=== PATIENT | female | born 1975 | race Caucasian/White ===

== ENCOUNTER 2016-09-19 13:26 | Emergency (ER) | payer BC ==
[2016-09-19] MEDS ORDERED: Lidocaine 1% 20 ML MDV INJECT ONE (13:51)
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
[2016-09-19 14:16] VITALS: BP 130/78
== END 2016-09-19 14:13 | disposition home or self-care (01) ==
LOC: MW.ED 13:26
DX: S41.112A Laceration without foreign body of left upper arm, initial encounter (principal); F41.9 Anxiety disorder, unspecified; Z90.710 Acquired absence of both cervix and uterus; Z88.1 Allergy status to other antibiotic agents; Z79.899 Other long term (current) drug therapy; W45.8XXA Other foreign body or object entering through skin, initial encounter
CPT/HCPCS: 12001; 99282